=== PATIENT | male | born 1980 | race Caucasian/White ===

== ENCOUNTER 2024-02-07 09:40 | Outpatient (CLI) | payer BC, SELFPAY ==
[2024-02-07 10:07] LABS: Basophils Absolute Auto 0.1 K/mm3 (0.0-0.1); Basophils Percent Auto 0.9 % (0.2-1.2); Eosinophils Absolute Auto 0.2 K/mm3 (0-0.3); Hematocrit 46.7 % (42.0-52.0); Hemoglobin 15.8 g/dL (14.0-18.0); Immature Granulocyte Absolute 0.02 K/mm3 (0.00-0.031); Immature Granulocyte Percent A 0.3 % (0-0.5); Lymphocytes Absolute Auto 1.61 K/mm3 (0.9-3.2); Lymphocytes Percent Auto 23.1 % (18.3-44.2); Mean Corpuscular HGB Conc 33.8 g/dl (32-36); Mean Corpuscular Hemoglobin 29.2 pg (26-34); Mean Corpuscular Volume 86.2 fl (80-100); Mean Platelet Volume 8.7 fl (7.4-10.4); Monocytes Absolute Auto 0.6 K/mm3 (0.1-0.6); Monocytes Percent Auto 8.9 % (2.6-8.5); Neutrophils Absolute Auto 4.4 K/mm3 (1.3-6.7); Neutrophils Percent Auto 63.8 % (45.5-73.1); Platelet Count Result 398 k/mm3 (150-375); Red Blood Count 5.42 M/mm3 (4.6-6.20); Red Cell Distribution Width 13.4 % (11.5-14.5)
[2024-02-07 11:25] LABS: Alanine Aminotransferase 19 U/L (6-50); Albumin Level 4.8 g/dL (3.5-5.1); Alkaline Phosphatase 68 U/L (38-126); Anion Gap 7 mmol/L (4-12); Aspartate Amino Transferase 23 U/L (17-59); Bilirubin,Total 0.5 mg/dL (0.2-1.3); Blood Urea Nitrogen 18 mg/dL (9-20); CRP < 0.5 mg/dL (<1.0); Calcium 9.7 mg/dL (8.4-10.2); Carbon Dioxide 25 mmol/L (22-30); Chloride 105 mmol/L (98-107); Estimated Glomerular Filt Rate > 60; Glucose 112 mg/dL (65-110); Lactate Dehydrogenase 158 U/L (120-246); Potassium 4.2 mmol/L (3.4-5.0); Sodium 137 mmol/L (137-145)
[2024-02-07 11:54] LABS: Thyroid Stimulating Hormone 0.941 uIU/mL (0.465-4.680)
[2024-02-07 12:29] LABS: Erythrocyte Sedimentation Rate 4 mm/hr (0-20)
== END 2024-02-07 09:41 | disposition home or self-care (01) ==
PROVIDERS: PCP Family Medicine; Visit Provider Internal Medicine Hematology & Oncology
DX: D47.3 Essential (hemorrhagic) thrombocythemia (principal); I10 Essential (primary) hypertension
CPT/HCPCS: 36415; 80053; 83615; 84443; 85025; 85652; 86038; 86140

== ENCOUNTER 2024-02-13 14:05 | Outpatient (CLI) | payer BC, SELFPAY ==
[2024-02-21 18:54] LABS: Block/Specimen ID BLOOD; CALR Exon 9 Mutation NOT DETECTED (NOT DETECTED); CSF3R Exon 14/17 Mutation NOT DETECTED (NOT DETECTED); JAK2 Exon 12 Mutation NOT DETECTED (NOT DETECTED); JAK2 V617F Mutation NOT DETECTED (NOT DETECTED); MPL Exon 10 Mutation NOT DETECTED (NOT DETECTED); Specimen Source Blood
== END 2024-02-13 14:06 | disposition home or self-care (01) ==
LOC: ANHLAB 14:06
PROVIDERS: PCP Family Medicine; Visit Provider Internal Medicine Hematology & Oncology
DX: D47.3 Essential (hemorrhagic) thrombocythemia (principal)
CPT/HCPCS: 36415; 81219; 81270; 81279; 81339; 81479

== ENCOUNTER 2024-02-14 07:35 | Outpatient (CLI) | payer BC, SELFPAY ==
--- NOTE | ~2024-02-14 | CT_ITS ---
EXAMINATION: CT soft tissue neck chest w DATE: 02/14/2024 08:06 INDICATION: Other forms of dyspnea. Melanoma of overlapping sites. TECHNIQUE: Computed tomography (CT) of the neck and chest was performed with 75 mL Omnipaque-350 intr avenous contrast. Automated exposure control and iterative reconstruction technique were employed. Th e dose-length product was 1177.74 mGy-cm. COMPARISON: None FINDINGS: NECK CT: A high right internal jugular chain lymph node measures 16 x 12 mm. A high left internal jug ular chain node measures 13 x 15 mm. The pharynx and larynx are normal. There is mild mucosal thicken ing in the paranasal sinuses. The mastoid air cells are normal. There is mild cervical spondylosis. CHEST CT: The lungs demonstrate mild atelectasis. No pleural effusion. Calcified right hilar lymph no michell are consistent with old granulomatous disease. The heart size is normal. No pericardial effusion. There is bilateral gynecomastia. There is a 3.6 x 1.5 cm mass inferior to posterior right seventh ri b. There are changes of cholecystectomy. There is mild chronic loss of multiple vertebral bodies. The re is mild thoracic spondylosis. IMPRESSION: 1. Mild bilateral high internal genitalia lymphadenopathy, probably reactive. If the patient's melano ma is in the head or neck, metastatic disease cannot be excluded. 2. 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 Reviewed, dictated and finalized at location E. IMPRESSION: 1. Mild bilateral high internal genitalia lymphadenopathy, probably reactive. I f the patient's melanoma is in the head or neck, metastatic disease cannot be e xcluded. 2. 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
== END 2024-02-14 07:36 | disposition home or self-care (01) ==
PROVIDERS: PCP Family Medicine; Visit Provider Internal Medicine Hematology & Oncology
DX: C43.8 Malignant melanoma of overlapping sites of skin (principal); R06.09 Other forms of dyspnea; R07.81 Pleurodynia; R59.0 Localized enlarged lymph nodes; Z85.820 Personal history of malignant melanoma of skin
CPT/HCPCS: 70491; 71260; Q9967

== ENCOUNTER 2024-03-07 00:18 | Day surgery (SDC) | payer BC, SELFPAY ==
[2024-02-23 13:31] VITALS: BMI 35.9
[2024-03-07 09:33] VITALS: BP 133/77; PULSE 64; RESP 19; TEMP 36.2; O2SAT 99; BMI 36.3
[2024-03-07] MEDS: LACTATED RINGERS 1,000 ML 150 ML IV CONT (09:36)
--- NOTE | 2024-03-07 10:04 | WPDHPUPDATE1 ---
History and Physical Update Update Date/Time: 03/07/24 10:04 History and Physical has been reviewed, including an updated exam of the patient. There are NO changes in the patient's condition. Risks, benefits, and alternatives have been discussed and questions answered. Patient agrees to proceed with procedure.
--- NOTE | 2024-03-07 10:15 | SUR.OPER ---
EGD: [id number] COLON: Start 100
[2024-03-07 10:19] VITALS: BP 100/67; PULSE 55; RESP 18; O2SAT 100
[2024-03-07 10:29] VITALS: BP 109/73; PULSE 67; RESP 18; O2SAT 100
[2024-03-07 10:39] VITALS: BP 130/93; PULSE 67; RESP 18; O2SAT 100
== END 2024-03-07 10:45 | disposition home or self-care (01) ==
PROVIDERS: PCP Family Medicine; Visit Provider Internal Medicine Gastroenterology
PROC: 0DJ08ZZ Inspection of Upper Intestinal Tract, Via Natural or Artificial Opening Endoscopic (ICD-10-PCS; CPT 43235; principal; 2024-03-07 10:30)
DX: K29.70 Gastritis, unspecified, without bleeding (principal); K64.8 Other hemorrhoids; K44.9 Diaphragmatic hernia without obstruction or gangrene; I10 Essential (primary) hypertension; E78.5 Hyperlipidemia, unspecified; G89.29 Other chronic pain; M54.50 Low back pain, unspecified; F17.210 Nicotine dependence, cigarettes, uncomplicated; Z79.891 Long term (current) use of opiate analgesic; Z79.82 Long term (current) use of aspirin; Z85.820 Personal history of malignant melanoma of skin; Z80.1 Family history of malignant neoplasm of trachea, bronchus and lung
CPT/HCPCS: 45378; 43239; 88305; J2001; J2704; J7120